=== PATIENT | female | born 1950 | race Caucasian/White ===

== ENCOUNTER 2017-02-22 13:08 | Inpatient (IN) | payer OTHER ==
[~2017-02-22] VITALS: Ht 152.4 cm; Wt 69.6 kg
[2017-02-22 13:11] VITALS: BP 133/76; PULSE 96; RESP 20; TEMP 97.5; O2SAT 99
[2017-02-22] MEDS ORDERED: SODIUM CHLOR 0.9% 1000 ML INJ 1,000 ML IV SCH (13:35)
--- NOTE | 2017-02-22 13:43 | PD ---
HPI Chief Complaint: Abdominal Pain Time Seen by Provider: 13:41 Travel History International Travel<30 days: No Contact w/Intl Traveler<30days: No Traveled to known affect area: No History of Present Illness HPI 66-year-old female patient presents to the ER today for 5 days history of right lower quadrant abdominal pains which she states is a for respite gets much worse when she moves. She had been seen at urgent care 4 days ago and was seen by primary care 2 days ago for similar symptoms and had been told to come to the ER if symptoms do not go away. She states she has been nauseous but denies any vomiting, diarrhea, fevers, or any other symptoms. Modifying Factors: None Associated Signs & Symptoms: Right lower quadrant abdominal pain Risk Factors: None PFSH Past Medical History Chemotherapy: Yes (2003) Past Surgical History Hysterectomy: Yes Social History Tobacco Use: No Allergies-Medications (Allergen,Severity, Reaction): Coded Allergies: Aldactone (Verified Allergy, Intermediate, FLU-LIKE SXS, 09/07/03) Bactrim (Verified Allergy, Intermediate, Dizziness, 02/22/17) Hydrochlorothiazide (Verified Allergy, Intermediate, Dizziness, 02/22/17) Uncoded Allergies: SEASONAL ALLERGIES (Allergy, Unknown, 09/07/03) Reported Meds & Prescriptions Reported Meds & Active Scripts Active Reported Vitamin D (Cholecalciferol) 1,000 Unit Tab 1,000 Units PO DAILY Ventolin Hfa 18 GM Inh (Albuterol Sulfate) 90 Mcg/Act Aer 2 Puff INH Q4-6H PRN Gnp Acid Control 150 Maxi (Ranitidine HCl) 150 Mg Tab Polyethylene Glycol 3350 Powder (Polyethylene Glycol) 17 Gm Pow 17 Gm PO DAILY Omeprazole 20 Mg Tab 20 Mg PO DAILY Montelukast Sodium (Montelukast Sodium (Bulk)) 1 Pow Pow Metronidazole 500 Mg Tab 500 Mg PO TID Levofloxacin 500 Mg Tablet 500 Mg PO DAILY Fluticasone Nasal [place] 50 Mcg/Act Naspr 50 Mcg EACH NARE BID 50 mcg/spray Estrace Vaginal (Estradiol) 0.01% Cream 1 Appl VAGINAL HS Bupropion HCl ER 24 HR (Bupropion HCl) 150 Mg Tab 150 Mg PO DAILY Atorvastatin (Atorvastatin Calcium) 10 Mg Tab 10 Mg PO HS Aspirin 81 Mg Chew 81 Mg CHEW DAILY Synthroid (Levothyroxine Sodium) 112 Mcg Tab 112 Mcg PO DAILY Review of Systems Except as stated in HPI: all other systems reviewed are Neg Physical Exam Narrative GENERAL: Elderly white female patient currently in moderate distress. Awake and oriented 3. SKIN: Focused skin assessment warm/dry. HEAD: Atraumatic. Normocephalic. EYES: Pupils equal and round. No scleral icterus. No injection or drainage. ENT: No nasal bleeding or discharge. Mucous membranes pink and moist. NECK: Trachea midline. No JVD. CARDIOVASCULAR: Regular rate and rhythm. No murmur appreciated. RESPIRATORY: No accessory muscle use. Clear to auscultation. Breath sounds equal bilaterally. GASTROINTESTINAL: Abdomen soft, right lower quadrant tenderness without guarding or rebound, nondistended. Hepatic and splenic margins not palpable. MUSCULOSKELETAL: No obvious deformities. No clubbing. No cyanosis. No edema. NEUROLOGICAL: Awake and alert. No obvious cranial nerve deficits. Motor grossly within normal limits. Normal speech. PSYCHIATRIC: Appropriate mood and affect; insight and judgment normal. Data Data Last Documented VS Vital Signs Date Time Temp Pulse Resp B/P Pulse Ox O2 Delivery O2 Flow Rate FiO2 02/22/17 14:15 14 02/22/17 14:05 70 125/66 99 Room Air 02/22/17 13:11 97.5 Orders Complete Blood Count With Diff (02/22/17 13:35) Comprehensive Metabolic Panel (02/22/17 13:35) Lipase (02/22/17 13:35) Urinalysis - C+S If Indicated (02/22/17 13:35) Ct Abd/Pel W Iv Contrast(Rout) (02/22/17 13:35) Iv Access Insert/Monitor (02/22/17 13:35) Ecg Monitoring (02/22/17 13:35) Oximetry (02/22/17 13:35) Morphine Inj (Morphine Inj) (02/22/17 13:45) Ondansetron Inj (Zofran Inj) (02/22/17 13:45) Sodium Chlor 0.9% 1000 Ml Inj (Ns 1000 M (02/22/17 13:35) Sodium Chloride 0.9% Flush (Ns Flush) (02/22/17 13:45) Iohexol 350 Inj (Omnipaque 350 Inj) (02/22/17 15:45) Labs Laboratory Tests Test 02/22/17 13:45 White Blood Count 9.4 TH/MM3 Red Blood Count 4.46 MIL/MM3 Hemoglobin 12.6 GM/DL Hematocrit 39.6 % Mean Corpuscular Volume 88.8 FL Mean Corpuscular Hemoglobin 28.4 PG Mean Corpuscular Hemoglobin 31.9 % Concent Red Cell Distribution Width 13.2 % Platelet Count 319 TH/MM3 Mean Platelet Volume 7.7 FL Neutrophils (%) (Auto) 54.1 % Lymphocytes (%) (Auto) 35.5 % Monocytes (%) (Auto) 6.6 % Eosinophils (%) (Auto) 2.8 % Basophils (%) (Auto) 1.0 % Neutrophils # (Auto) 5.1 TH/MM3 Lymphocytes # (Auto) 3.3 TH/MM3 Monocytes # (Auto) 0.6 TH/MM3 Eosinophils # (Auto) 0.3 TH/MM3 Basophils # (Auto) 0.1 TH/MM3 CBC Comment DIFF FINAL Differential Comment Urine Color YELLOW Urine Turbidity CLEAR Urine pH 5.5 Urine Specific [place] 1.019 Urine Protein NEG mg/dL Urine Glucose (UA) NEG mg/dL Urine Ketones NEG mg/dL Urine Occult Blood NEG Urine Nitrite NEG Urine Bilirubin NEG Urine Urobilinogen LESS THAN 2.0 MG/DL Urine Leukocyte Esterase TRACE Urine RBC 1 /hpf Urine WBC 1 /hpf Urine Squamous Epithelial 2 /hpf Cells Urine Transitional Epithelial <1 /hpf Cells Urine Mucus FEW /lpf Microscopic Urinalysis Comment CULT NOT INDICATED Sodium Level 138 MEQ/L Potassium Level 3.7 MEQ/L Chloride Level 103 MEQ/L Carbon Dioxide Level 28.7 MEQ/L Anion Gap 6 MEQ/L Blood Urea Nitrogen 14 MG/DL Creatinine 0.77 MG/DL Estimat Glomerular Filtration 75 ML/MIN Rate Random Glucose 108 MG/DL Calcium Level 9.2 MG/DL Total Bilirubin 0.2 MG/DL Aspartate Amino Transf 30 U/L (AST/SGOT) Alanine Aminotransferase 46 U/L (ALT/SGPT) Alkaline Phosphatase 105 U/L Total Protein 7.7 GM/DL Albumin 4.0 GM/DL Lipase 245 U/L [facility] Medical Decision Making Medical Screen Exam Complete: Yes Emergency Medical Condition: Yes Medical Record Reviewed: Yes Interpretation(s) Laboratory Tests Test 02/22/17 13:45 Mean Corpuscular Hemoglobin 31.9 % Concent (32.0-36.0) Urine Leukocyte Esterase TRACE (NEG) Urine Mucus FEW /lpf (OCC) Estimat Glomerular Filtration 75 ML/MIN (>89) Rate Random Glucose 108 MG/DL (74-106) Differential Diagnosis Right lower quadrant abdominal painsappendicitis versus diverticulitis versus other acute intra-abdominal processes Narrative Course Lab work did not show any signs of significant leukocytosis. CAT scan reveals normal appendix but shows a abnormal appearing mass at the hip the pancreas concerning for pancreatic adenocarcinoma. At this point, my plan would be to admit the patient for further treatment and evaluation of abdominal pain. Case was discussed with Dr. Krueger for admission. Diagnosis Primary Impression: Abdominal pain Additional Impression: Pancreatic mass Admitting Information Admitting Physician Requests: Admit Janelle Salazar MD Feb 22, 2017 13:43
[2017-02-22] MEDS ORDERED: SODIUM CHLORIDE 0.9% FLUSH 10 ML FLUSH IV FLUSH PRN (13:45)
[2017-02-22] MEDS ORDERED: ONDANSETRON HCL 4 MG/2 ML VIAL IVP ONE (13:45)
[2017-02-22] MEDS ORDERED: MORPHINE SULFATE 4 MG/ML INJ IV PUSH ONE (13:45)
[2017-02-22 14:05] VITALS: BP 125/66; PULSE 70; RESP 15; O2SAT 99
[2017-02-22] MEDS ORDERED: POLY17S PO (14:05)
[2017-02-22] MEDS ORDERED: ATOR10TA15 PO (14:05)
[2017-02-22] MEDS ORDERED: VENTAER INH (14:05)
[2017-02-22] MEDS ORDERED: BUPR150T3 PO (14:05)
[2017-02-22] MEDS ORDERED: GNP150TA (14:05)
[2017-02-22] MEDS ORDERED: METR500T10 PO (14:05)
[2017-02-22] MEDS ORDERED: MONTPOW2 (14:05)
[2017-02-22] MEDS ORDERED: SYNT112T PO (14:05)
[2017-02-22] MEDS ORDERED: FLUT50SP EACH NARE (14:05)
[2017-02-22] MEDS ORDERED: ASPI81CH CHEW (14:05)
[2017-02-22] MEDS ORDERED: VITA100064 PO (14:05)
[2017-02-22] MEDS ORDERED: OMEP20TA PO (14:05)
[2017-02-22] MEDS ORDERED: LEVO500T8 PO (14:05)
[2017-02-22] MEDS ORDERED: ESTR42.5V VAGINAL (14:05)
[2017-02-22 14:29] LABS: AUTOMATED NEUTROPHIL # 5.1 TH/MM3 (1.8-7.7); BASOPHIL # 0.1 TH/MM3 (0-0.2); EOSINOPHIL # 0.3 TH/MM3 (0-0.4); EOSINOPHIL % 2.8 % (0.0-4.0); HEMATOCRIT 39.6 % (35.0-46.0); HEMO FLAGS DIFF FINAL; LYMPH % 35.5 % (9.0-44.0); LYMPHOCYTE # 3.3 TH/MM3 (1.0-4.8); MEAN CELL VOLUME 88.8 FL (80.0-100.0); MEAN CORPUSCULAR HEMOGLOBIN 28.4 PG (27.0-34.0); MEAN CORPUSCULAR HGB CONC 31.9 % (32.0-36.0); MONO % 6.6 % (0.0-8.0); NEUT % 54.1 % (16.0-70.0); PLATELET COUNT 319 TH/MM3 (150-450); RED BLOOD COUNT 4.46 MIL/MM3 (4.00-5.30); RED CELL DISTRIBUTION WIDTH 13.2 % (11.6-17.2); WHITE BLOOD COUNT 9.4 TH/MM3 (4.0-11.0)
[2017-02-22 14:37] LABS: BLOOD, URINE NEG (NEG); COMMENT (UR) CULT NOT INDICATED; CULTURE IF INDICATED CULT NOT INDICATED; GLUCOSE,URINE NEG (NEG); KETONE, URINE NEG (NEG); MUCUS URINE FEW /lpf (OCC); NITRITE,URINE NEG (NEG); PH, URINE 5.5 (5.0-8.5); SQUAMOUS EPITHELIAL CELL URINE 2 /hpf (0-5); TRANSITIONAL EPI CELLS, URINE <1 /hpf; URINE COLOR YELLOW (YELLW/STRAW)
[2017-02-22 15:05] LABS: ANION GAP 6 MEQ/L (5-15); AST (GOT) 30 U/L (15-37); BICARBONATE 28.7 MEQ/L (21.0-32.0); BLOOD UREA NITROGEN 14 MG/DL (7-18); CHLORIDE 103 MEQ/L (98-107); GLOMERULAR FILTRATION RATE 75 ML/MIN (>89); POTASSIUM 3.7 MEQ/L (3.5-5.1); SODIUM (NA) 138 MEQ/L (136-145)
[2017-02-22 15:07] LABS: ALKALINE PHOSPHATASE 105 U/L (45-117); ALT (GPT) 46 U/L (10-53); TOTAL BILIRUBIN ADULT 0.2 MG/DL (0.2-1.0)
[2017-02-22] MEDS ORDERED: IOHEXOL 350 MG/ML 10 ML VIAL (for RAD DIAG) IV ONE (15:45)
--- NOTE | 2017-02-22 16:15 | RADRPT ---
EXAM DATE/TIME: 02/22/2017 15:39 [facility] COMPARISON: No previous studies available for comparison. INDICATIONS : Right lower quadrant pain for five days. IV CONTRAST: 100 cc Omnipaque 350 (iohexol) IV ORAL CONTRAST: No oral contrast ingested. RADIATION DOSE: 12.34 CTDIvol (mGy) MEDICAL HISTORY : Carcinoma, breast. SURGICAL HISTORY : Cholecystectomy. Hysterectomy. ENCOUNTER: Initial ACUITY: 1 day PAIN SCALE: 8/10 LOCATION: Right lower quadrant TECHNIQUE: Volumetric scanning of the abdomen and pelvis was performed. Using automated exposure control and ad justment of the mA and/or kV according to patient size, radiation dose was kept as low as reasonably achievable to obtain optimal diagnostic quality images. FINDINGS: LOWER LUNGS: The visualized lower lungs are clear. LIVER: Homogeneous density without lesion. There is no dilation of the biliary tree. Gallbladder is surgica lly absent. SPLEEN: Normal size without lesion. PANCREAS: There is ill defined hypodensity involving the pancreatic head with pancreatic ductal dilatation dist ally. There is questionable pancreatic tail atrophy. No significant pancreatic calcifications or infl ammatory change. No adjacent adenopathy. KIDNEYS: Normal in size and shape. There is no mass, stone or hydronephrosis. ADRENAL GLANDS: Within normal limits. VASCULAR: There is no aortic aneurysm. BOWEL/MESENTERY: Appendix is visualized and normal in appearance. Bowel appears grossly unremarkable without evidence for obstruction. No free fluid or drainable fluid collection. ABDOMINAL WALL: Within normal limits. RETROPERITONEUM: There is no lymphadenopathy. BLADDER: No wall thickening or mass. REPRODUCTIVE: Uterus is surgically absent. INGUINAL: There is no lymphadenopathy or hernia. MUSCULOSKELETAL: Within normal limits for patient age. CONCLUSION: 1. Ill-defined mass in the pancreatic head/proximal body with resultant pancreatic ductal dilatation and slight tail atrophy. Findings are concerning for pancreatic adenocarcinoma. Pancreatic mass amber col MRI or CT examination may be performed for further evaluation. 2. Normal appendix. 3. No other findings to explain patient's abdominal pain. Venu Mendenhall MD on February 22, 2017 at 16:04 Board Certified Radiologist. This report was verified electronically.
--- NOTE | 2017-02-22 17:08 | HHI.HP ---
HPI Service [facility] Hospitalists Primary Care Physician Melissa Rascon Jr, MD Admission Diagnosis abdominal pain/pancreatic mass Chief Complaint: rlq pain Travel History International Travel<30 Days: No Contact w/Intl Traveler <30 Da: No Traveled to Known Affected Are: No History of Present Illness Pt is 66 yo with hx of breast ca s/p lumpectomy, chemoradiation. She presents with rlq pain over past week. Was seen in urgent care and pcp. she was prescribed levaquin and flagyl for possible appendicitis but it was unclear. Also she was given laxatives for possible constipation. No f/c or n/v. Pt seen here today and CT a/p shows apparent pancreas mass with distention of pancreatic duct. admission requested. Pt has maternal grandfather had pancreas ca and paternal grandmother with breast ca. Her father had colon ca at 57. She gets regular colonoscopy and says had one about 4 yrs ago. Review of Systems Other rlq pain Past Family Social History Past Medical History breast ca. lumpectomy. s/p chemorad. port placement cholecystecomy betty/bso hypothyroidism seasonal allergy. depression,. hyperlipidemia Past Surgical History Reported Medications Vitamin D (Cholecalciferol) 1,000 Unit Tab 1,000 Units PO DAILY Ventolin Hfa 18 GM Inh (Albuterol Sulfate) 90 Mcg/Act Aer 2 Puff INH Q4-6H PRN Gnp Acid Control 150 Maxi (Ranitidine HCl) 150 Mg Tab Polyethylene Glycol 3350 Powder (Polyethylene Glycol) 17 Gm Pow 17 Gm PO DAILY Omeprazole 20 Mg Tab 20 Mg PO DAILY Montelukast Sodium (Montelukast Sodium (Bulk)) 1 Pow Pow Metronidazole 500 Mg Tab 500 Mg PO TID Levofloxacin 500 Mg Tablet 500 Mg PO DAILY Fluticasone Nasal [place] 50 Mcg/Act Naspr 50 Mcg EACH NARE BID 50 mcg/spray Estrace Vaginal (Estradiol) 0.01% Cream 1 Appl VAGINAL HS Bupropion HCl ER 24 HR (Bupropion HCl) 150 Mg Tab 150 Mg PO DAILY Atorvastatin (Atorvastatin Calcium) 10 Mg Tab 10 Mg PO HS Aspirin 81 Mg Chew 81 Mg CHEW DAILY Synthroid (Levothyroxine Sodium) 112 Mcg Tab 112 Mcg PO DAILY Allergies: Coded Allergies: Aldactone (Verified Allergy, Intermediate, FLU-LIKE SXS, 09/07/03) Bactrim (Verified Allergy, Intermediate, Dizziness, 02/22/17) Hydrochlorothiazide (Verified Allergy, Intermediate, Dizziness, 02/22/17) Uncoded Allergies: SEASONAL ALLERGIES (Allergy, Unknown, 09/07/03) Family History father colon ca 57 pat GM. breast ca pat GF pancreas ca Social History at least 1 glass wine daily quit tob use over 30yrs ago Physical Exam Vital Signs heent neg heart reg lung cta abd s/nt/nabs/nd just received morphine ext no edema Vital Signs Date Time Temp Pulse Resp B/P Pulse Ox O2 Delivery O2 Flow Rate FiO2 02/22/17 14:15 14 02/22/17 14:05 70 15 125/66 99 Room Air 02/22/17 13:35 15 02/22/17 13:11 97.5 96 20 133/76 99 Room Air Laboratory Laboratory Tests Test 02/22/17 13:45 White Blood Count 9.4 Red Blood Count 4.46 Hemoglobin 12.6 Hematocrit 39.6 Mean Corpuscular Volume 88.8 Mean Corpuscular Hemoglobin 28.4 Mean Corpuscular Hemoglobin 31.9 Concent Red Cell Distribution Width 13.2 Platelet Count 319 Mean Platelet Volume 7.7 Neutrophils (%) (Auto) 54.1 Lymphocytes (%) (Auto) 35.5 Monocytes (%) (Auto) 6.6 Eosinophils (%) (Auto) 2.8 Basophils (%) (Auto) 1.0 Neutrophils # (Auto) 5.1 Lymphocytes # (Auto) 3.3 Monocytes # (Auto) 0.6 Eosinophils # (Auto) 0.3 Basophils # (Auto) 0.1 CBC Comment DIFF FINAL Differential Comment Urine Color YELLOW Urine Turbidity CLEAR Urine pH 5.5 Urine Specific [place] 1.019 Urine Protein NEG Urine Glucose (UA) NEG Urine Ketones NEG Urine Occult Blood NEG Urine Nitrite NEG Urine Bilirubin NEG Urine Urobilinogen LESS THAN 2.0 Urine Leukocyte Esterase TRACE Urine RBC 1 Urine WBC 1 Urine Squamous Epithelial 2 Cells Urine Transitional Epithelial <1 Cells Urine Mucus FEW Microscopic Urinalysis Comment CULT NOT INDICATED Sodium Level 138 Potassium Level 3.7 Chloride Level 103 Carbon Dioxide Level 28.7 Anion Gap 6 Blood Urea Nitrogen 14 Creatinine 0.77 Estimat Glomerular Filtration 75 Rate Random Glucose 108 Calcium Level 9.2 Total Bilirubin 0.2 Aspartate Amino Transf 30 (AST/SGOT) Alanine Aminotransferase 46 (ALT/SGPT) Alkaline Phosphatase 105 Total Protein 7.7 Albumin 4.0 Lipase 245 Result Diagram: 02/22/17 1345 02/22/17 1345 Assessment and Plan Problem List: (1) Pancreatic mass Status: Acute Plan: Pt has hx breast ca s/p lumpectomy/chemorad. Presents with 1 week RLQ pain and abx started by clinic for questionable appendicitis. laxative for constipation. But today in ED CT shows an apparent pancreas head mass and dilation of pancreatic duct. Denies any known hx of pancreatitis but does use daily wine. certainly we need to exclude malignancy. She has as above a strong family hx of malignancy. Father(colon), paternal GM(breast), paternal GF(pancreas) MRCP to evaluate anatomy GI consult if still concerning for malignancy check tumor markers pain control cont laxatives dvt prophylaxis. (2) HX: breast cancer Status: Resolved (3) Hypothyroid Status: Chronic Physician Certification 2 Midnight Certification Type: Admission for Inpatient Services Order for Inpatient Services 3The services are ordered in accordance with Medicare regulations or non- Medicare payer requirements, as applicable. In the case of services not specified as inpatient-only, they are appropriately provided as inpatient services in accordance with the 2-midnight benchmark. Estimated LOS (days): 3 3 days is the estimated time the patient will need to remain in the hospital, assuming treatment plan goals are met and no additional complications. Álvaro Krueger MD Feb 22, 2017 17:08
[2017-02-22] MEDS ORDERED: ALBUTEROL SULFATE 90 MCG/ACT HFA 18 GM INHALER INH PRN (17:15)
[2017-02-22] MEDS ORDERED: TEMAZEPAM 15 MG CAP PO PRN (17:15)
[2017-02-22] MEDS ORDERED: ONDANSETRON HCL 4 MG/2 ML VIAL IV PUSH PRN (17:15)
[2017-02-22] MEDS ORDERED: GADODIAMIDE PF 287 MG/ML 20 ML VIAL (for RAD MRI) IV ONE (18:37)
--- NOTE | 2017-02-22 19:09 | RADRPT ---
EXAM DATE/TIME: 02/22/2017 18:14 [facility] COMPARISON: CT ABDOMEN & PELVIS W CONTRAST, February 22, 2017, 15:39. INDICATIONS : Pancreatic mass. CONTRAST: 14 cc Omniscan (gadodiamide) IV MEDICAL HISTORY : Carcinoma, breast. SURGICAL HISTORY : Cholecystectomy. Breast lumpectomy. ENCOUNTER: Initial ACUITY: 1 day PAIN SCORE: 5/10 LOCATION: Right lower quadrant TECHNIQUE: Multiplanar, multisequence magnetic resonance imaging of the abdomen was performed. High-resolution 3D dataset was utilized to reconstruct maximum-intensity projection (MIP) images. FINDINGS: Vague hypoenhancing mass seen in the pancreatic head, measures approximately 2.0 x 2.2 x 2.8 cm in si ze. Common bile duct is distended and deviated to the right, measures approximately 11 mm maximum. Th ere is patchy dilatation of the pancreatic duct up to 7 mm and truncated abruptly within the mass. Mi ld/early tail atrophy suspected. No lymphadenopathy demonstrated. No evidence of vascular invasion. No focal hepatic lesion. Spleen, adrenal glands and kidneys are within normal limits. CONCLUSION: Mass of the pancreatic head measuring approximately 2.0 x 2.2 x 2.8 cm, adenocarcinoma until proven o therwise. Associated obstruction of the pancreatic duct and deviation/dilatation of the common bile d uct. No evidence of metastatic disease or focal vascular invasion. Ashish Varma MD on February 22, 2017 at 19:01 Board Certified Radiologist. This report was verified electronically.
[2017-02-22 19:11] VITALS: BP 126/59
[2017-02-22 20:00] VITALS: BP 108/55; PULSE 110; RESP 17; TEMP 97.5; O2SAT 95
[2017-02-22] MEDS: FLUTICASONE PROPIONATE 50 MCG/ACT 16 GM NASAL SPRAY EACH NARE SCH (21:00)
[2017-02-22] MEDS: MORPHINE SULFATE 4 MG/ML INJ IV PUSH PRN (21:52)
[2017-02-23] VITALS: BP 116/55; PULSE 74; RESP 16; TEMP 97.7; O2SAT 95
[2017-02-23 04:00] VITALS: BP 107/55; PULSE 78; RESP 16; TEMP 97.4; O2SAT 98
[2017-02-23] MEDS: LEVOTHYROXINE SODIUM 112 MCG TAB PO SCH (04:53)
[2017-02-23] MEDS: PANTOPRAZOLE SOD 20 MG DELAYED RELEASE TAB PO SCH (04:57)
[2017-02-23 08:00] VITALS: BP 117/76; PULSE 73; RESP 18; TEMP 96.6; O2SAT 98
[2017-02-23] MEDS: FLUTICASONE PROPIONATE 50 MCG/ACT 16 GM NASAL SPRAY EACH NARE SCH ×2 (09:00→21:29)
[2017-02-23] MEDS: buPROPion HCL 150 MG EXTENDED RELEASE TAB PO SCH (09:00)
[2017-02-23] MEDS ORDERED: ACETAMINOPHEN 325 MG TAB PO ONE (09:45)
[2017-02-23] MEDS ORDERED: ACETAMINOPHEN 325 MG TAB PO PRN (09:45)
[2017-02-23] MEDS: CHOLECALCIFEROL (VIT D3) 1000 UNIT TAB PO SCH (09:52)
[2017-02-23] MEDS: POLYETHYLENE GLYCOL 17 GM PKG PO SCH (09:52)
[2017-02-23 12:00] VITALS: BP 120/65; PULSE 80; RESP 18; TEMP 97.5; O2SAT 96
--- NOTE | 2017-02-23 12:20 | HHI.PR ---
Subjective Remarks rlq pain somewhat better. bowels moving. Objective Vitals heart reg lung cta abd s/nt ext no edema Vital Signs Date Time Temp Pulse Resp B/P Pulse Ox O2 Delivery O2 Flow Rate FiO2 02/23/17 08:00 96.6 73 18 117/76 98 02/23/17 04:00 97.4 78 16 107/55 98 02/23/17 00:00 97.7 74 16 116/55 95 02/22/17 22:44 16 02/22/17 20:00 97.5 110 17 108/55 95 02/22/17 19:11 104 15 126/59 97 02/22/17 14:15 14 02/22/17 14:05 70 15 125/66 99 Room Air 02/22/17 13:35 15 02/22/17 13:11 97.5 96 20 133/76 99 Room Air 02/22/17 02/22/17 02/23/17 15:00 23:00 07:00 Intake Total 480 ml 480 ml Balance 480 ml 480 ml Intake Oral 480 ml 480 ml # Voids 3 4 Result Diagram: 02/22/17 1345 02/22/17 1345 A/P Problem List: (1) Pancreatic mass Status: Acute Plan: Pt has hx breast ca s/p lumpectomy/chemorad. Presents with 1 week RLQ pain and abx started by clinic for questionable appendicitis. laxative for constipation. But in ED CT shows an apparent pancreas head mass and dilation of pancreatic duct. Denies any known hx of pancreatitis but does use daily wine. certainly we need to exclude malignancy. She has as above a strong family hx of malignancy. Father(colon), paternal GM(breast), paternal GF(pancreas) -MRCP 02/22. 2 x 2.2 x 2.8cm pancreatic head mass. some dilation of pancreatic duct and distortion of cbd. concern for adenoca Long discussion with pt. Will need to ask GI for evaluation and will likely need EUS w/up. So far no obstruction on LFT. ..?c-scope given rlq pain Tumor markers note nml cea and ca 19-9 pain control cont laxatives dvt prophylaxis. (2) HX: breast cancer Status: Resolved (3) Hypothyroid Status: Chronic Álvaro Krueger MD Feb 23, 2017 12:20
--- NOTE | 2017-02-23 13:47 | PD.CONS ---
HPI History of Present Illness This is a 66 year old lady with hx breast ca s/p lumpectomy with chemo and radiation, family hx pancreatic and colon ca, who presented to hospital with RLQ pain and was found to have pancreatic head mass. She has had RLQ pain intermittently in the last couple years but has worsened in last 2 weeks. It seems like a stabbing pain she notices most when changing positions, sitting down or standing up. It hurts when she chagnes position in bed and settles down when she is comfortable and not moving. She was constipated and took dulcolax and had some relief after subsequent BM but then pain got worse and she came to ER. CT --> pancreatic mass w/ distention pancreatic duct. MRCP -- > mass pancreatic head 2x2.2x2.8 cm, adenocarcinoma until proven otherwise, associated obstruction pancreatic duct and deviation, dilatation common bile duct, no evidence metastatic disease or focal vascular invasion. pt denies jaundice, n/v, diarrhea, weight loss. She last had colonoscopy 4 years ago, she thinks w/ Dr Velez, and it was normal. She had EGD a couple years ago for dysphagia and had dilation done, stricture was found. Her GERD subsequently worsened after dilation. She takes omeprazole. She says when she had her MICHAEL she was told there were adhesions. (Perlita Haddad) PFSH Past Medical History breast cancer GERD hyperlipdemia depression hypothyroid Past Surgical History cholecystectomy, right lumpectomy, MICHAEL (Perlita Haddad) Coded Allergies: Aldactone (Verified Allergy, Intermediate, FLU-LIKE SXS, 09/07/03) Bactrim (Verified Allergy, Intermediate, Dizziness, 02/22/17) Hydrochlorothiazide (Verified Allergy, Intermediate, Dizziness, 02/22/17) Uncoded Allergies: SEASONAL ALLERGIES (Allergy, Unknown, 09/07/03) Family History breast cancer - grand parent pancreatic cancer - grandparent colon ca - father aortic stenosis - mother CVD Social History occasional etoh no tobacco or drug use (Perlita Haddad) Review of Systems Constitutional: DENIES: Fever Eyes: DENIES: Blurred vision Ears, nose, mouth, throat: DENIES: Hearing loss Respiratory: DENIES: Cough Gastrointestinal: COMPLAINS OF: Abdominal pain, DENIES: Black stools, Bloody stools, Constipation, Diarrhea, Nausea, Anorexia, Swelling of Abdomen, Hematemesis Genitourinary: DENIES: Urinary frequency Integumentary: DENIES: Abnormal pigmentation, Jaundice Hematologic/lymphatic: DENIES: Bruising Neurologic: DENIES: Abnormal gait Psychiatric: DENIES: Confusion (Perlita Haddad) GI Exam Vitals I&O Vital Signs Date Time Temp Pulse Resp B/P Pulse Ox O2 Delivery O2 Flow Rate FiO2 02/23/17 12:00 97.5 80 18 120/65 96 02/23/17 08:00 96.6 73 18 117/76 98 02/23/17 04:00 97.4 78 16 107/55 98 02/23/17 00:00 97.7 74 16 116/55 95 02/22/17 22:44 16 02/22/17 20:00 97.5 110 17 108/55 95 02/22/17 19:11 104 15 126/59 97 02/22/17 14:15 14 02/22/17 14:05 70 15 125/66 99 Room Air I/O 02/22/17 02/22/17 02/22/17 02/23/17 02/23/17 02/23/17 07:00 15:00 23:00 07:00 15:00 23:00 Intake Total 480 ml 480 ml Balance 480 ml 480 ml Intake Oral 480 ml 480 ml # Voids 3 4 Imaging Last Impressions Abdomen/Pelvis CT 02/22/17 1335 Signed Impressions: Service Date/Time: Wednesday, February 22, 2017 15:39 - CONCLUSION: 1. Ill- defined mass in the pancreatic head/proximal body with resultant pancreatic ductal dilatation and slight tail atrophy. Findings are concerning for pancreatic adenocarcinoma. Pancreatic mass protocol MRI or CT examination may be performed for further evaluation. 2. Normal appendix. 3. No other findings to explain patient's abdominal pain. Venu Mendenhall MD Cholangiopancreatography MRI 02/22/17 0000 Signed Impressions: Service Date/Time: Wednesday, February 22, 2017 18:14 - CONCLUSION: Mass of the pancreatic head measuring approximately 2.0 x 2.2 x 2.8 cm, adenocarcinoma until proven otherwise. Associated obstruction of the pancreatic duct and deviation/dilatation of the common bile duct. No evidence of metastatic disease or focal vascular invasion. Ashish Varma MD Laboratory Test 02/22/17 02/22/17 13:45 18:45 White Blood Count 9.4 TH/MM3 Red Blood Count 4.46 MIL/MM3 Hemoglobin 12.6 GM/DL Hematocrit 39.6 % Mean Corpuscular Volume 88.8 FL Mean Corpuscular Hemoglobin 28.4 PG Mean Corpuscular Hemoglobin 31.9 % Concent Red Cell Distribution Width 13.2 % Platelet Count 319 TH/MM3 Mean Platelet Volume 7.7 FL Neutrophils (%) (Auto) 54.1 % Lymphocytes (%) (Auto) 35.5 % Monocytes (%) (Auto) 6.6 % Eosinophils (%) (Auto) 2.8 % Basophils (%) (Auto) 1.0 % Neutrophils # (Auto) 5.1 TH/MM3 Lymphocytes # (Auto) 3.3 TH/MM3 Monocytes # (Auto) 0.6 TH/MM3 Eosinophils # (Auto) 0.3 TH/MM3 Basophils # (Auto) 0.1 TH/MM3 CBC Comment DIFF FINAL Differential Comment Urine Color YELLOW Urine Turbidity CLEAR Urine pH 5.5 Urine Specific Baker 1.019 Urine Protein NEG mg/dL Urine Glucose (UA) NEG mg/dL Urine Ketones NEG mg/dL Urine Occult Blood NEG Urine Nitrite NEG Urine Bilirubin NEG Urine Urobilinogen LESS THAN 2.0 MG/DL Urine Leukocyte Esterase TRACE Urine RBC 1 /hpf Urine WBC 1 /hpf Urine Squamous Epithelial 2 /hpf Cells Urine Transitional Epithelial <1 /hpf Cells Urine Mucus FEW /lpf Microscopic Urinalysis Comment CULT NOT INDICATED Sodium Level 138 MEQ/L Potassium Level 3.7 MEQ/L Chloride Level 103 MEQ/L Carbon Dioxide Level 28.7 MEQ/L Anion Gap 6 MEQ/L Blood Urea Nitrogen 14 MG/DL Creatinine 0.77 MG/DL Estimat Glomerular Filtration 75 ML/MIN Rate Random Glucose 108 MG/DL Calcium Level 9.2 MG/DL Total Bilirubin 0.2 MG/DL Aspartate Amino Transf 30 U/L (AST/SGOT) Alanine Aminotransferase 46 U/L (ALT/SGPT) Alkaline Phosphatase 105 U/L Total Protein 7.7 GM/DL Albumin 4.0 GM/DL Lipase 245 U/L Tumor Marker Alpha Fetoprotein 8.7 NG/ML Carcinoembryonic Antigen 1.1 NG/ML CA 19-9 Antigen LESS THAN 1.2 U/ML Physical Examination HEENT: Pupils round and reactive to light; normocephalic; atraumatic; no jaundice. Throat is clear. NECK: Neck is supple, no JVD, no lymphadenopathy. CHEST: Chest is clear to auscultation and percussion. CARDIAC: Regular rate and rhythm with no murmur gallop or rubs. ABDOMEN: Soft, nondistended, nontender; no hepatosplenomegaly; bowel sounds are present in all four quadrants. EXTREMITIES: No clubbing, cyanosis, or edema. SKIN: Normal; no rash; no jaundice. 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 (Perlita Haddad) Assessment and Plan Plan ASSESSMENT -pancreatic mass - no LFT derangement, pt denies n/v, epigastric pain, jaundice. AFP 8.7, CEA 1.1, CA 19-[address] --> 02/22/17 pancreatic mass w/ distention pancreatic duct. MRCP 02/22/17--> mass pancreatic head 2x2.2x2.8 cm, adenocarcinoma until proven otherwise, associated obstruction pancreatic duct and deviation, dilatation common bile duct, no evidence metastatic disease or focal vascular invasion. fam hx pancreatic ca. - RLQ pain - ?adhesions hx MICHAEL, told at that time she had adhesions. worse with certain movements. CT as above. Colonoscopy 4y ago and normal per pt. Consider repeat colonoscopy. If pain persists or worsens consider GS consult. fam hx colon ca. Pain improved today. PLAN - EUS tomorrow - obtain consents - NPO after midnight - monitor labs - further recommendations to follow This pt seen by myself and DR Odom and this note is written on his behalf (Perlita Haddad) Physician Comments Patient seen and examined Agree with above Continue with current supportive care Monitor labs Plan for EUS with FNA probably tomorrow but if not he will be Friday May need to pursue a colonoscopy also (Maurice Odom MD) Perlita Haddad Feb 23, 2017 13:47 Maurice Odom MD Feb 23, 2017 15:16
[2017-02-23] MEDS: MORPHINE SULFATE 4 MG/ML INJ IV PUSH PRN (15:20)
[2017-02-23] MEDS ORDERED: ACETAMINOPHEN/HYDROcodone 325 MG/5 MG TAB PO PRN (15:45)
[2017-02-23 16:00] VITALS: BP 108/66; PULSE 69; RESP 18; TEMP 97.6; O2SAT 98
[2017-02-23 20:00] VITALS: BP 112/58; PULSE 84; RESP 17; TEMP 97.1; O2SAT 95
[2017-02-24] VITALS: BP 107/55; PULSE 75; RESP 16; TEMP 97.4; O2SAT 97
[2017-02-24 04:00] VITALS: BP 109/57; PULSE 70; RESP 17; TEMP 97.1; O2SAT 97
[2017-02-24] MEDS: PANTOPRAZOLE SOD 20 MG DELAYED RELEASE TAB PO SCH (05:07)
[2017-02-24] MEDS: LEVOTHYROXINE SODIUM 112 MCG TAB PO SCH (05:08)
[2017-02-24 08:28] VITALS: BP 115/68; PULSE 75; RESP 20; TEMP 96.4; O2SAT 96
--- NOTE | 2017-02-24 08:34 | HHI.PR ---
Subjective Remarks Pt complains of a right sided frontal headache which has been present since yesterday She thinks it may be a sinus headache. Still with some abdominal discomfort which is slightly improved since prior to admission. Objective Vitals Vital Signs Date Time Temp Pulse Resp B/P Pulse Ox O2 Delivery O2 Flow Rate FiO2 02/24/17 04:00 97.1 70 17 109/57 97 02/24/17 00:00 97.4 75 16 107/55 97 02/23/17 20:00 97.1 84 17 112/58 95 02/23/17 16:00 97.6 69 18 108/66 98 02/23/17 12:00 97.5 80 18 120/65 96 02/23/17 02/23/17 02/24/17 15:00 23:00 07:00 Intake Total 480 ml Balance 480 ml Intake Oral 480 ml IV Total 0 ml # Voids 4 2 Result Diagram: 02/22/17 1345 02/22/17 1345 Other Results Laboratory Tests Test 02/22/17 02/22/17 13:45 18:45 White Blood Count 9.4 TH/MM3 Red Blood Count 4.46 MIL/MM3 Hemoglobin 12.6 GM/DL Hematocrit 39.6 % Mean Corpuscular Volume 88.8 FL Mean Corpuscular Hemoglobin 28.4 PG Mean Corpuscular Hemoglobin 31.9 % Concent Red Cell Distribution Width 13.2 % Platelet Count 319 TH/MM3 Mean Platelet Volume 7.7 FL Neutrophils (%) (Auto) 54.1 % Lymphocytes (%) (Auto) 35.5 % Monocytes (%) (Auto) 6.6 % Eosinophils (%) (Auto) 2.8 % Basophils (%) (Auto) 1.0 % Neutrophils # (Auto) 5.1 TH/MM3 Lymphocytes # (Auto) 3.3 TH/MM3 Monocytes # (Auto) 0.6 TH/MM3 Eosinophils # (Auto) 0.3 TH/MM3 Basophils # (Auto) 0.1 TH/MM3 CBC Comment DIFF FINAL Differential Comment Urine Color YELLOW Urine Turbidity CLEAR Urine pH 5.5 Urine Specific Warner 1.019 Urine Protein NEG mg/dL Urine Glucose (UA) NEG mg/dL Urine Ketones NEG mg/dL Urine Occult Blood NEG Urine Nitrite NEG Urine Bilirubin NEG Urine Urobilinogen LESS THAN 2.0 MG/DL Urine Leukocyte Esterase TRACE Urine RBC 1 /hpf Urine WBC 1 /hpf Urine Squamous Epithelial 2 /hpf Cells Urine Transitional Epithelial <1 /hpf Cells Urine Mucus FEW /lpf Microscopic Urinalysis Comment CULT NOT INDICATED Sodium Level 138 MEQ/L Potassium Level 3.7 MEQ/L Chloride Level 103 MEQ/L Carbon Dioxide Level 28.7 MEQ/L Anion Gap 6 MEQ/L Blood Urea Nitrogen 14 MG/DL Creatinine 0.77 MG/DL Estimat Glomerular Filtration 75 ML/MIN Rate Random Glucose 108 MG/DL Calcium Level 9.2 MG/DL Total Bilirubin 0.2 MG/DL Aspartate Amino Transf 30 U/L (AST/SGOT) Alanine Aminotransferase 46 U/L (ALT/SGPT) Alkaline Phosphatase 105 U/L Total Protein 7.7 GM/DL Albumin 4.0 GM/DL Lipase 245 U/L Tumor Marker Alpha Fetoprotein 8.7 NG/ML Carcinoembryonic Antigen 1.1 NG/ML CA 19-9 Antigen LESS THAN 1.2 U/ML Imaging Last Impressions Abdomen/Pelvis CT 02/22/17 1335 Signed Impressions: Service Date/Time: Wednesday, February 22, 2017 15:39 - CONCLUSION: 1. Ill- defined mass in the pancreatic head/proximal body with resultant pancreatic ductal dilatation and slight tail atrophy. Findings are concerning for pancreatic adenocarcinoma. Pancreatic mass protocol MRI or CT examination may be performed for further evaluation. 2. Normal appendix. 3. No other findings to explain patient's abdominal pain. Venu Mendenhall MD Cholangiopancreatography MRI 02/22/17 0000 Signed Impressions: Service Date/Time: Wednesday, February 22, 2017 18:14 - CONCLUSION: Mass of the pancreatic head measuring approximately 2.0 x 2.2 x 2.8 cm, adenocarcinoma until proven otherwise. Associated obstruction of the pancreatic duct and deviation/dilatation of the common bile duct. No evidence of metastatic disease or focal vascular invasion. Ashish Varma MD Objective Remarks General: NAD, AAOx3 Chest: CTA Cardiac: Regular Abd: +BS, soft ND/NT Ext: No edema. A/P Problem List: (1) Pancreatic mass Status: Acute Plan: - Pt has hx breast ca s/p lumpectomy/chemo/XRT. - Pt presented with 1 week RLQ pain and abx started by clinic for questionable appendicitis and laxatives for constipation. - In the ED CT shows an apparent pancreatic head mass and dilation of pancreatic duct. Denies any known hx of pancreatitis but does use daily wine. - She has as above a strong family hx of malignancy. Father(colon), paternal GM( breast), paternal GF(pancreas) - MRCP (02/22) --> 2 x 2.2 x 2.8cm pancreatic head mass with some dilation of pancreatic duct and distortion of CBD. Concern for adenoca - Appreciate GI consultation - Pt to undergo evaluation with EUS. - Monitor LFTs. - Possible c-scope given RLQ pain - Tumor markers note nml CEA and CA19-9, AFP is elevated at 8.7 - Pain control PRN - Cont laxatives - DVT prophylaxis. (2) HX: breast cancer Status: Resolved (3) Hypothyroid Status: Chronic Assessment and Plan Patient examined. Assessment and plan formulated with Saloni Arellano PA-C. I agree with the above. Saloni Arellano Feb 24, 2017 08:34 Keo Montelongo DO Feb 28, 2017 15:48
[2017-02-24] MEDS: FLUTICASONE PROPIONATE 50 MCG/ACT 16 GM NASAL SPRAY EACH NARE SCH ×2 (08:37→21:00)
[2017-02-24] MEDS: buPROPion HCL 150 MG EXTENDED RELEASE TAB PO SCH (09:00)
[2017-02-24] MEDS: POLYETHYLENE GLYCOL 17 GM PKG PO SCH (09:00)
[2017-02-24] MEDS ORDERED: CALCIUM CARBONATE 500 MG CHEWABLE TAB CHEW PRN (09:00)
[2017-02-24 12:16] VITALS: BP 126/61; PULSE 86; RESP 20; TEMP 96.5; O2SAT 97
[2017-02-24] MEDS ORDERED: MIDAZOLAM HCL 2 MG/2 ML VIAL ONE (15:36)
[2017-02-24] MEDS ORDERED: FAMOTIDINE 20 MG/2 ML VIAL ONE (16:02)
[2017-02-24] MEDS ORDERED: PROPOFOL 200 MG/20 ML AMP IV ONE (16:24)
[2017-02-24] MEDS ORDERED: ONDANSETRON HCL 4 MG/2 ML VIAL IV PUSH ONE (16:24)
--- NOTE | 2017-02-24 17:14 | PD.PROCEDR ---
GI Procedure REFERRING PHYSICIAN Dr. Krueger PROCEDURE PERFORMED EUS with FNA INDICATION FOR PROCEDURE Pancreatic mass PROCEDURE: The procedure, risks and benefits were discussed with Ms. Javier and informed consent was obtained. Anesthesia sedated her with Diprivan. She was placed in the left lateral decubitus position. EUS: The Pentax videoscope was introduced through the oropharynx and advanced to the second portion of the duodenum. FINDINGS: There was a fairly large hypoechoic somewhat hard pancreatic head mass measuring about 5 cm abutting the portal vein and possibly infiltrating the portal vein also causing common bile duct dilation and no lymphadenopathy noted The pancreatic duct was also noted to be dilated FNA was performed on the mass and good samples were obtained ESTIMATED BLOOD LOSS: None SPECIMENS REMOVED: FNA of pancreatic head mass COMPLICATIONS: None IMPRESSION: Pancreatic head mass probable malignancy and possibly infiltrating the portal vein PLAN: Await biopsy Oncology evaluation Supportive care Maurice Odom MD Feb 24, 2017 17:14
[2017-02-24 18:13] VITALS: BP 131/65; PULSE 83; RESP 20; TEMP 97.7; O2SAT 100
[2017-02-24] MEDS: CHOLECALCIFEROL (VIT D3) 1000 UNIT TAB PO SCH (18:15)
[2017-02-24 20:00] VITALS: BP 120/64; PULSE 84; RESP 18; TEMP 98.6; O2SAT 98
[2017-02-24] MEDS ORDERED: DO NOT ADM ANY ANTICOAGULANT DRUGS PRN (20:15)
[2017-02-25] VITALS: BP 122/61; PULSE 87; RESP 18; TEMP 98; O2SAT 97
[2017-02-25 05:50] VITALS: BP 120/64; PULSE 83; RESP 18; TEMP 97.7; O2SAT 96
[2017-02-25] MEDS: LEVOTHYROXINE SODIUM 112 MCG TAB PO SCH (05:57)
[2017-02-25] MEDS: FLUTICASONE PROPIONATE 50 MCG/ACT 16 GM NASAL SPRAY EACH NARE SCH ×2 (06:05→09:20)
[2017-02-25 06:53] LABS: AUTOMATED NEUTROPHIL # 4.7 TH/MM3 (1.8-7.7); BASOPHIL # 0.1 TH/MM3 (0-0.2); BASOPHIL % 1.1 % (0.0-2.0); EOSINOPHIL # 0.1 TH/MM3 (0-0.4); EOSINOPHIL % 1.7 % (0.0-4.0); HEMATOCRIT 34.9 % (35.0-46.0); HEMO FLAGS DIFF FINAL; LYMPH % 33.5 % (9.0-44.0); LYMPHOCYTE # 2.8 TH/MM3 (1.0-4.8); MEAN CELL VOLUME 88.5 FL (80.0-100.0); MEAN CORPUSCULAR HEMOGLOBIN 28.8 PG (27.0-34.0); MEAN CORPUSCULAR HGB CONC 32.5 % (32.0-36.0); MONO % 6.8 % (0.0-8.0); NEUT % 56.9 % (16.0-70.0); PLATELET COUNT 266 TH/MM3 (150-450); RED BLOOD COUNT 3.94 MIL/MM3 (4.00-5.30); RED CELL DISTRIBUTION WIDTH 12.9 % (11.6-17.2); WHITE BLOOD COUNT 8.3 TH/MM3 (4.0-11.0)
[2017-02-25 07:34] LABS: ALKALINE PHOSPHATASE 74 U/L (45-117); ALT (GPT) 28 U/L (10-53); ANION GAP 11 MEQ/L (5-15); AST (GOT) 16 U/L (15-37); BICARBONATE 25.4 MEQ/L (21.0-32.0); BLOOD UREA NITROGEN 7 MG/DL (7-18); CHLORIDE 104 MEQ/L (98-107); GLOMERULAR FILTRATION RATE 100 ML/MIN (>89); POTASSIUM 3.5 MEQ/L (3.5-5.1); SODIUM (NA) 140 MEQ/L (136-145); TOTAL BILIRUBIN ADULT 0.3 MG/DL (0.2-1.0)
--- NOTE | 2017-02-25 08:24 | HHI.PR ---
Subjective Remarks Headache has resolved. She denies any significant abd pain today Pt tolerating clear liquid diet and would like her diet advanced Objective Vitals Vital Signs Date Time Temp Pulse Resp B/P Pulse Ox O2 Delivery O2 Flow Rate FiO2 02/25/17 05:50 97.7 83 18 120/64 96 02/25/17 00:00 98.0 87 18 122/61 97 02/24/17 20:05 Room Air 02/24/17 20:00 98.6 84 18 120/64 98 02/24/17 18:42 Nasal Cannula 2.00 02/24/17 18:13 97.7 83 20 131/65 100 02/24/17 17:45 97.4 83 16 117/59 100 Nasal Cannula 2 02/24/17 17:30 89 16 115/57 99 Nasal Cannula 2 02/24/17 17:19 97.4 92 16 161/65 96 Nasal Cannula 2 02/24/17 12:16 96.5 86 20 126/61 97 02/24/17 08:28 96.4 75 20 115/68 96 02/24/17 02/24/17 02/25/17 15:00 23:00 07:00 Intake Total 840 ml 240 ml Output Total 50 ml Balance 790 ml 240 ml Intake Oral 240 ml 240 ml Other 600 ml Estimated Blood Loss 50 ml # Voids 5 2 2 # Bowel Movements 1 Result Diagram: 02/25/17 0520 02/25/17 05 Other Results Laboratory Tests Test 02/25/17 05:20 White Blood Count 8.3 TH/MM3 Red Blood Count 3.94 MIL/MM3 Hemoglobin 11.3 GM/DL Hematocrit 34.9 % Mean Corpuscular Volume 88.5 FL Mean Corpuscular Hemoglobin 28.8 PG Mean Corpuscular Hemoglobin 32.5 % Concent Red Cell Distribution Width 12.9 % Platelet Count 266 TH/MM3 Mean Platelet Volume 7.9 FL Neutrophils (%) (Auto) 56.9 % Lymphocytes (%) (Auto) 33.5 % Monocytes (%) (Auto) 6.8 % Eosinophils (%) (Auto) 1.7 % Basophils (%) (Auto) 1.1 % Neutrophils # (Auto) 4.7 TH/MM3 Lymphocytes # (Auto) 2.8 TH/MM3 Monocytes # (Auto) 0.6 TH/MM3 Eosinophils # (Auto) 0.1 TH/MM3 Basophils # (Auto) 0.1 TH/MM3 CBC Comment DIFF FINAL Differential Comment Sodium Level 140 MEQ/L Potassium Level 3.5 MEQ/L Chloride Level 104 MEQ/L Carbon Dioxide Level 25.4 MEQ/L Anion Gap 11 MEQ/L Blood Urea Nitrogen 7 MG/DL Creatinine 0.60 MG/DL Estimat Glomerular Filtration 100 ML/MIN Rate Random Glucose 104 MG/DL Calcium Level 9.0 MG/DL Total Bilirubin 0.3 MG/DL Aspartate Amino Transf 16 U/L (AST/SGOT) Alanine Aminotransferase 28 U/L (ALT/SGPT) Alkaline Phosphatase 74 U/L Total Protein 6.3 GM/DL Albumin 3.2 GM/DL Imaging Last Impressions Abdomen/Pelvis CT 02/22/17 1335 Signed Impressions: Service Date/Time: Wednesday, February 22, 2017 15:39 - CONCLUSION: 1. Ill- defined mass in the pancreatic head/proximal body with resultant pancreatic ductal dilatation and slight tail atrophy. Findings are concerning for pancreatic adenocarcinoma. Pancreatic mass protocol MRI or CT examination may be performed for further evaluation. 2. Normal appendix. 3. No other findings to explain patient's abdominal pain. Venu Mendenhall MD Cholangiopancreatography MRI 02/22/17 0000 Signed Impressions: Service Date/Time: Wednesday, February 22, 2017 18:14 - CONCLUSION: Mass of the pancreatic head measuring approximately 2.0 x 2.2 x 2.8 cm, adenocarcinoma until proven otherwise. Associated obstruction of the pancreatic duct and deviation/dilatation of the common bile duct. No evidence of metastatic disease or focal vascular invasion. Ashish Varma MD Objective Remarks General: NAD, AAOx3 Chest: CTA Cardiac: Regular Abd: +BS, soft ND/NT Ext: No edema. A/P Problem List: (1) Pancreatic mass Status: Acute Plan: - Pt has hx breast ca s/p lumpectomy/chemo/XRT. - Pt presented with 1 week RLQ pain and abx started by clinic for questionable appendicitis and laxatives for constipation. - In the ED CT shows an apparent pancreatic head mass and dilation of pancreatic duct. Denies any known hx of pancreatitis but does use daily wine. - She has as above a strong family hx of malignancy. Father(colon), paternal GM( breast), paternal GF(pancreas) - MRCP (02/22) --> 2 x 2.2 x 2.8cm pancreatic head mass with some dilation of pancreatic duct and distortion of CBD. Concern for adenoca - Appreciate GI consultation - Pt underwent evaluation with EUS (02/24/17)--> Pancreatic head mass probable malignancy and possibly infiltrating the portal vein - Pathology is pending. - Oncology has been consulted. Pt had previously been under the case of Dr. Castellon for her breast cancer. - Monitor LFTs. - Tumor markers note nml CEA and CA19-9, AFP is elevated at 8.7 - Pt tolerating clear liquid diet - Pain control PRN - Cont laxatives - DVT prophylaxis. (2) HX: breast cancer Status: Resolved (3) Hypothyroid Status: Chronic Assessment and Plan Patient examined. Assessment and plan formulated with Saloni Arellano PA-C. I agree with the above. Saloni Arellano Feb 25, 2017 08:24 Keo Montelongo DO Feb 28, 2017 15:48
[2017-02-25 08:57] VITALS: BP 116/60; PULSE 74; RESP 20; TEMP 97.4; O2SAT 97
[2017-02-25] MEDS: buPROPion HCL 150 MG EXTENDED RELEASE TAB PO SCH (09:00)
[2017-02-25] MEDS: POLYETHYLENE GLYCOL 17 GM PKG PO SCH (09:20)
[2017-02-25] MEDS: CHOLECALCIFEROL (VIT D3) 1000 UNIT TAB PO SCH (09:20)
--- NOTE | 2017-02-25 11:36 | HHI.GIFU ---
Subjective Remarks Pt resting in bed, visiting with . She is tolerating clears, no vomiting , nausea, pain. She is asking to have diet advanced and is ready to go home. Objective Vitals I&O Vital Signs Date Time Temp Pulse Resp B/P Pulse Ox O2 Delivery O2 Flow Rate FiO2 02/25/17 09:19 Room Air 02/25/17 08:57 97.4 74 20 116/60 97 02/25/17 05:50 97.7 83 18 120/64 96 02/25/17 00:00 98.0 87 18 122/61 97 02/24/17 20:05 Room Air 02/24/17 20:00 98.6 84 18 120/64 98 02/24/17 18:42 Nasal Cannula 2.00 02/24/17 18:13 97.7 83 20 131/65 100 02/24/17 17:45 97.4 83 16 117/59 100 Nasal Cannula 2 02/24/17 17:30 89 16 115/57 99 Nasal Cannula 2 02/24/17 17:19 97.4 92 16 161/65 96 Nasal Cannula 2 02/24/17 12:16 96.5 86 20 126/61 97 I/O 02/24/17 02/24/17 02/24/17 02/25/17 02/25/17 02/25/17 07:00 15:00 23:00 07:00 15:00 23:00 Intake Total 840 ml 240 ml Output Total 50 ml Balance 790 ml 240 ml Intake Oral 240 ml 240 ml Other 600 ml Estimated Blood Loss 50 ml # Voids 2 5 2 2 # Bowel Movements 1 Laboratory Laboratory Tests Test 02/25/17 05:20 White Blood Count 8.3 Red Blood Count 3.94 Hemoglobin 11.3 Hematocrit 34.9 Mean Corpuscular Volume 88.5 Mean Corpuscular Hemoglobin 28.8 Mean Corpuscular Hemoglobin 32.5 Concent Red Cell Distribution Width 12.9 Platelet Count 266 Mean Platelet Volume 7.9 Neutrophils (%) (Auto) 56.9 Lymphocytes (%) (Auto) 33.5 Monocytes (%) (Auto) 6.8 Eosinophils (%) (Auto) 1.7 Basophils (%) (Auto) 1.1 Neutrophils # (Auto) 4.7 Lymphocytes # (Auto) 2.8 Monocytes # (Auto) 0.6 Eosinophils # (Auto) 0.1 Basophils # (Auto) 0.1 CBC Comment DIFF FINAL Differential Comment Sodium Level 140 Potassium Level 3.5 Chloride Level 104 Carbon Dioxide Level 25.4 Anion Gap 11 Blood Urea Nitrogen 7 Creatinine 0.60 Estimat Glomerular Filtration 100 Rate Random Glucose 104 Calcium Level 9.0 Total Bilirubin 0.3 Aspartate Amino Transf 16 (AST/SGOT) Alanine Aminotransferase 28 (ALT/SGPT) Alkaline Phosphatase 74 Total Protein 6.3 Albumin 3.2 Imaging Last Impressions Abdomen/Pelvis CT 02/22/17 1335 Signed Impressions: Service Date/Time: Wednesday, February 22, 2017 15:39 - CONCLUSION: 1. Ill- defined mass in the pancreatic head/proximal body with resultant pancreatic ductal dilatation and slight tail atrophy. Findings are concerning for pancreatic adenocarcinoma. Pancreatic mass protocol MRI or CT examination may be performed for further evaluation. 2. Normal appendix. 3. No other findings to explain patient's abdominal pain. Venu Mendenhall MD Cholangiopancreatography MRI 02/22/17 0000 Signed Impressions: Service Date/Time: Wednesday, February 22, 2017 18:14 - CONCLUSION: Mass of the pancreatic head measuring approximately 2.0 x 2.2 x 2.8 cm, adenocarcinoma until proven otherwise. Associated obstruction of the pancreatic duct and deviation/dilatation of the common bile duct. No evidence of metastatic disease or focal vascular invasion. Ashish Varma MD Physical Exam HEENT:PERRL; normocephalic; atraumatic; no jaundice. CHEST: CTA CARDIAC: RRR ABDOMEN: Soft, nondistended, nontender; no hepatosplenomegaly; bowel sounds are present in all four quadrants. EXTREMITIES: No clubbing, cyanosis, or edema. SKIN: Normal; no rash; no jaundice. 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 Assessment and Plan Plan ASSESSMENT -pancreatic mass - no LFT derangement, pt denies n/v, epigastric pain, jaundice. AFP 8.7, CEA 1.1, CA 19-9 <1.2. EUS 02/24/17 --> pancreatic head mass probably malignancy, possible infiltration portal vein. CT --> 02/22/17 pancreatic mass w/ distention pancreatic duct. MRCP 02/22/17--> mass pancreatic head 2x2.2x2.8 cm, adenocarcinoma until proven otherwise, associated obstruction pancreatic duct and deviation, dilatation common bile duct, no evidence metastatic disease or focal vascular invasion. fam hx pancreatic ca. Oncology consult pending. - RLQ pain - IMPROVED. ?adhesions hx MICHAEL, told at that time she had adhesions. worse with certain movements. CT as above. Colonoscopy 4y ago and normal per pt. Consider repeat colonoscopy as outpatient, If pain persists or worsens consider GS consult. fam hx colon ca. PLAN - await pathology FNA - await oncology consult - low fat diet - f/u with GI as outpatient in 1 week - okay to d/c from GI standpoint if pt is tolerating diet and has had oncology consult, d/w Dr Odom This pt seen by myself and DR Salamanca and this note is written on his behalf Perlita Haddad Feb 25, 2017 11:36
[2017-02-25 12:09] VITALS: BP 122/58; PULSE 79; RESP 20; TEMP 97.2; O2SAT 97
[2017-02-25 16:05] VITALS: BP 121/59; PULSE 76; RESP 20; TEMP 97.3; O2SAT 99
--- NOTE | 2017-02-25 16:15 | HHI.DCPOC ---
Discharge Care Plan Diagnosis: (1) Pancreatic mass (2) Abdominal pain (3) HX: breast cancer (4) Hypothyroid Goals to Promote Your Health - Pt is to followup with Dr. Castellon within 1 week, call for an appt. - Pt is to followup with GI, Dr. Odom in 1-2 weeks - Followup with your PCP, Dr. Solis, in 1 week, call for an appt. Directions to Meet Your Goals Take your medications as prescribed Follow your dietary instruction Follow activity as directed Keep your appointments as scheduled Take your immunizations and boosters as scheduled If your symptoms worsen call your PCP, if no PCP go to Urgent Care Center or Emergency Room Smoking is Dangerous to Your Health. Avoid second hand smoke Call the 24-hour hour crisis hotline for domestic abuse at Saloni Arellano Feb 25, 2017 16:15 Keo Montelongo DO Feb 28, 2017 15:49
[2017-02-25] MEDS ORDERED: HYDR-3516 PO (16:16)
--- NOTE | 2017-02-25 17:09 | EKG ---
Date Performed: 02/24/2017 Time Performed: 14:01:23 PTAGE: 66 years EKG: Sinus rhythm NORMAL ECG NO PREVIOUS TRACING DOCTOR: Alyssa Soriano Interpretating Date/Time 02/25/2017 17:06:40
--- NOTE | 2017-02-25 22:18 | MB ---
cc: MIKO MCGOVERN SAUD E. M.D. MCCOLLUM, ALFONZA MD DATE OF CONSULTATION 02/25/2017 REASON FOR CONSULTATION Probable cancer of the pancreas. PATIENT PROFILE The patient is a 66-year-old white female. She is . She has two children, one adopted and one biologic. She was born in [place] and has lived in [place] since 1971. 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 She stopped smoking in 1980 and had previously smoked less than a pack of cigarettes per week for a period of 10 years. Alcohol intake is minimal. HISTORY OF PRESENT ILLNESS The patient is a 66-year-old female who had a right lumpectomy and axillary lymph node dissection on 06/17/2003 for a moderately differentiated invasive ductal cancer. Pathologic stage T1c N0 M0. ER positive. She received four cycles of Cytoxan, Adriamycin and then 5 years of Arimidex. She received postoperative radiation. She has had no evidence of recurrent breast cancer. She was well until about 8 or 9 days ago when she developed pain in the right lower quadrant of the abdomen. She took medications for constipation which transiently helped. The pain worsened significantly and became unbearable. She went to the emergency room on 02/22/2017 for severe right lower quadrant pain not responsive to outpatient management. On 02/22/[address] scan of the abdomen and pelvis with IV contrast. This showed an ill-defined mass in the pancreatic head proximal body with resultant pancreatic ductal dilation and slight tail atrophy. Findings were of concern for pancreatic adenocarcinoma. The appendix appeared normal. There was nothing else on the exam to explain the patient's right lower quadrant abdominal pain. On the same day the patient underwent an MRI, MRCP with and without contrast to evaluate the pancreas. The findings were "mass at the pancreatic head measuring 2.0 x 2.2 x 2.8 cm, adenocarcinoma until proven otherwise. Associated obstruction of the pancreatic duct and deviation dilation of the common bile duct. No evidence of metastatic disease or focal vascular invasion. On 02/24/2017 the patient underwent EUS was with FNA. There was a hard pancreatic head mass which was felt to measure 5 cm abutting the portal vein and possibly infiltrating the portal vein causing common bile duct dilation. No lymphadenopathy noted. I contacted Dr. Odom who performed the procedure and asked him whether there was convincing evidence of vascular invasion and at this point there is no convincing evidence. It simply abuts the vascular structure and one cannot determine whether there is or is not invasion. The patient was treated with laxatives for her abdominal pain. The pain has resolved. There has been no history of weight loss, upper abdominal pain or back pain which often accompanies pancreatic cancer. Studies include on 02/22/2017 normal lytes, BUN, creatinine, glucose. An alpha-fetoprotein is 8.7. CEA is 1.1 and a CA19-9 is less than 1.2. Hemoglobin on 02/22/2017 12.6, white count 9000, platelets 319,000. ASSESSMENT A 66-year-old female who presented with right lower quadrant abdominal pain and is found to have a mass in the pancreas. The right lower abdominal pain I do not believe is related to the current findings which are highly suggestive of pancreatic cancer. For the present time it appears that she may be a candidate for surgery. There is no evidence of metastatic disease and there is no documented vascular invasion. PLAN 1. The films and findings were reviewed with the patient. I showed her the images and explained that the most successful treatment for pancreatic cancer is surgical removal of the disease when it has not spread and it can be fully excised. 2. Await the results of the biopsy. 3. If this is adenocarcinoma of the pancreas, I would like her to be seen by a surgeon who does a significant volume of pancreatic cancer surgery and if possible does robotic surgery which would allow her to avoid an open procedure resulting in a better recovery. At the moment, we do not have a firm diagnosis. The fact that the CA19-9 is low and there is no evidence of metastatic disease or vascular invasion indicates that she may be a candidate for surgery. She will contact our office early next week and decisions will be forthcoming. Also of note, she has not had any imaging of the chest and therefore I will at some point make arrangements for least a chest x-ray. MD ANDREW Manuel/ALONZO /7:27 PM /9:55 PM GENNARO
--- NOTE | 2017-02-26 08:43 | HHI.DS ---
Discharge Summary Admission Date Feb 22, 2017 at 17:10 Admitting Diagnosis abdominal pain/pancreatic mass (1) Pancreatic mass (2) HX: breast cancer (3) Hypothyroid Consultants Dr. Maurice Odom - GI Dr. Álvaro Castellon - Oncology Brief History Pt is 66 yo with hx of breast ca s/p lumpectomy, chemoradiation. She presents with rlq pain over past week. Was seen in urgent care and pcp. she was prescribed levaquin and flagyl for possible appendicitis but it was unclear. Also she was given laxatives for possible constipation. No f/c or n/v. Pt seen here today and CT a/p shows apparent pancreas mass with distention of pancreatic duct. admission requested. Pt has maternal grandfather had pancreas ca and paternal grandmother with breast ca. Her father had colon ca at 57. She gets regular colonoscopy and says had one about 4 yrs ago. CBC/BMP: 02/25/17 0520 02/25/17 0520 Significant Findings Laboratory Tests Test 02/25/17 05:20 Red Blood Count 3.94 MIL/MM3 (4.00-5.30) Hemoglobin 11.3 GM/DL (11.6-15.3) Hematocrit 34.9 % (35.0-46.0) Total Protein 6.3 GM/DL (6.4-8.2) Albumin 3.2 GM/DL (3.4-5.0) Imaging Last Impressions Abdomen/Pelvis CT 02/22/17 1335 Signed Impressions: Service Date/Time: Wednesday, February 22, 2017 15:39 - CONCLUSION: 1. Ill- defined mass in the pancreatic head/proximal body with resultant pancreatic ductal dilatation and slight tail atrophy. Findings are concerning for pancreatic adenocarcinoma. Pancreatic mass protocol MRI or CT examination may be performed for further evaluation. 2. Normal appendix. 3. No other findings to explain patient's abdominal pain. Venu Mendenhall MD Cholangiopancreatography MRI 02/22/17 0000 Signed Impressions: Service Date/Time: Wednesday, February 22, 2017 18:14 - CONCLUSION: Mass of the pancreatic head measuring approximately 2.0 x 2.2 x 2.8 cm, adenocarcinoma until proven otherwise. Associated obstruction of the pancreatic duct and deviation/dilatation of the common bile duct. No evidence of metastatic disease or focal vascular invasion. Ashish Varma MD PE at Discharge General: NAD, AAOx3 Chest: CTA Cardiac: Regular Abd: +BS, soft ND/NT Ext: No edema. Hospital Course Pt has hx breast ca s/p lumpectomy/chemo/XRT. Pt presented with 1 week RLQ pain and abx started by clinic for questionable appendicitis and was given antibiotics and laxatives for constipation. In the ED CT shows an apparent pancreatic head mass and dilation of pancreatic duct. Denies any known hx of pancreatitis but does use daily wine. She has a strong family hx of malignancy. Father(colon), paternal GM(breast), paternal GF(pancreas). MRCP (02/22) --> 2 x 2.2 x 2.8cm pancreatic head mass with some dilation of pancreatic duct and distortion of CBD. Concern for adenocarcinoma. GI was consulted. Pt underwent evaluation with EUS (02/24/17)--> fairly large hypoechoic somewhat hard pancreatic head mass measuring about 5 cm abutting the portal vein and possibly infiltrating the portal vein also causing common bile duct dilation and no lymphadenopathy noted, pancreatic duct was also noted to be dilated. FNA was performed on the mass and good samples were obtained. Pathology is pending. Oncology was consulted. Pt had previously been under the case of Dr. Castellon for her breast cancer. Dr. Castellon saw the pt prior to discharge. He is awaiting the pathology results and may have imaging of the chest performed as an outpt. Tumor markers note nml CEA and CA19-9, AFP is elevated at 8.7. Dr. Castellon may consider sending the pt to a tertiary center for surgical intervention if there is no evidence of any metastatic spread. Pt was tolerating regular diet prior to discharge. Her pain was controlled. Pt will followup with Dr. Castellon in 1 week. She will followup with Dr. Odom in 2-3 weeks. Pt will followup with her PCP, Dr. Solis in 1 week. Pt Condition on Discharge: Stable Discharge Disposition: Discharge Home Discharge Instructions DIET: Follow Instructions for: Low Fat Diet Activities you can perform: Regular-No Restrictions Follow up Referrals: Gastroenterology - 2 Weeks @ [facility] - [address] Castellon PCP Follow-up - [address] Solis New Medications: Hydrocodone-Acetaminophen (Hydrocodone-Acetaminophen) 5-325 mg Tab 1 TAB PO Q4H PRN pain over 3 #15 Ref 0 TAB Continued Medications: Albuterol 18 GM Inh (Ventolin Hfa 18 GM Inh) 90 Mcg/Act Aer 2 PUFF INH Q4-6H PRN SHORTNESS OF BREATH #1 Ref 0 INHALER Aspirin (Aspirin) 81 Mg Chew 81 MG CHEW DAILY Ref 0 TAB Atorvastatin (Atorvastatin) 10 Mg Tab 10 MG PO HS Cholesterol Management #30 Ref 0 TAB Bupropion HCl ER 24 HR (Bupropion HCl ER 24 HR) 150 Mg Tab 150 MG PO DAILY Control Depression Ref 0 TAB Cholecalciferol (Vitamin D) 1,000 Unit Tab 1000 UNITS PO DAILY Nutritional Supplement #1 Ref 0 BOTTLE Estradiol Vaginal (Estrace Vaginal) 0.01% Cream 1 APPL VAGINAL HS Estrogen Supplements #1 Ref 0 TUBE Fluticasone Nasal [place] (Fluticasone Nasal [place]) 50 Mcg/Act Naspr 50 MCG EACH NARE BID 50 mcg/spray Allergy Management #1 Ref 0 BOTTLE Levothyroxine (Synthroid) 112 Mcg Tab 112 MCG PO DAILY Thyroid #30 Ref 0 TAB Montelukast Sodium (Bulk) (Montelukast Sodium) 1 Pow Pow Omeprazole (Omeprazole) 20 Mg Tab 20 MG PO DAILY #30 Ref 0 TAB Polyethylene Glycol 3350 Powder (Polyethylene Glycol 3350 Powder) 17 Gm Pow 17 GM PO DAILY Constipation #1 Ref 0 BOTTLE Ranitidine HCl (Gnp Acid Control 150 Maxi) 150 Mg Tab Discontinued Medications: Levofloxacin (Levofloxacin) 500 Mg Tablet 500 MG PO DAILY Infection Ref 0 TAB Metronidazole (Metronidazole) 500 Mg Tab 500 MG PO TID Infection Ref 0 TAB Additional Information Patient examined. Assessment and plan formulated with Saloni Arellano PA-C. I agree with the above. Saloni Arellano Feb 26, 2017 08:43 Keo Montelongo DO Feb 28, 2017 15:48
== END 2017-02-25 21:12 | disposition home or self-care (01) | DRG 440 ==
LOC: NEPC 13:08 → NEDA 16:28 → OBSVTOIN 17:10 → HOCA 19:18
PROVIDERS: ADMIT Hospitalist; ATTEND Hospitalist
PROC: 0FBG4ZX Excision of Pancreas, Percutaneous Endoscopic Approach, Diagnostic (ICD-10-PCS; principal; 2017-02-24 16:15)
DX: K86.9 Disease of pancreas, unspecified (principal); F32.9 Major depressive disorder, single episode, unspecified; E03.9 Hypothyroidism, unspecified; K21.9 Gastro-esophageal reflux disease without esophagitis; E78.5 Hyperlipidemia, unspecified; K59.00 Constipation, unspecified; Z85.3 Personal history of malignant neoplasm of breast
CPT/HCPCS: 43242; 74177; 74183; 76377; 76937; 80053; 81001; 82105; 82378; 83690; 85025; 86301; 93005; 96361; 96374; 96375; A9579; J2250; J2270; J2405; J3010; J7030; Q9967

== ENCOUNTER → 2017-04-09 | Day surgery (SDC) | payer MEDICARE ==
[~2017-04-09] VITALS: Ht 152.4 cm; Wt 69.5 kg
[~2017-04-09] MED LIST: ACETAMINOPHEN 1000 MG/100 ML VIAL IV ONE; ACETAMINOPHEN 1000 MG/100 ML VIAL IV SCH; ALPR0.25 PO; ASPI81CH CHEW; ATOR10TA15 PO; BUPR150T3 PO; CHLORHEXIDINE GLUCONATE 2 % 1 PACK (2 CLOTHS) TOPICAL PRN; DO NOT ADM ANY ANTICOAGULANT DRUGS PRN; ESTR42.5V VAGINAL; FLUT50SP EACH NARE; HEPARIN SODIUM - IV 10,000 UNITS/10 ML VIAL ONE; HYDR-3516 PO; INSULIN HUMAN REGULAR 1,000 UNITS/10 ML VIAL SQ PRN; KETOROLAC TROMETHAMINE 30 MG/ML (IVP) VIAL IV PUSH ONE; LACTATED RINGER'S 1000 ML IV PRN; LIDOCAINE 1%/EPINEPHrine 1:100,000 SOLN 20 ML VIAL ONE; LIDOCAINE 1%/EPINEPHrine 1:100,000 SOLN 30 ML VIAL INFIL ONE; MEPERIDINE HCL 50 MG/ML VIAL ONE; METOPROLOL TARTRATE 25 MG TAB PO PRN; MORPHINE SULFATE 4 MG/ML INJ IV PRN; OMEP20TA PO; ONDANSETRON HCL 4 MG/2 ML VIAL IV PRN; ONDANSETRON HCL 4 MG/2 ML VIAL ONE; POLY17S PO; POVIDONE IODINE 5% (ANTISEPSIS KIT) 4 APPLICATIONS EACH NARE PRN; PROPOFOL 200 MG/20 ML AMP IV ONE; SODIUM BICARBONATE 8.4% INJ 50 ML ONE; SODIUM CHLORID 0.9% 500 ML IV PRN; SODIUM CHLORIDE 0.9% 20 ML VIAL ONE; SODIUM CHLORIDE 0.9% FLUSH 10 ML FLUSH IV FLUSH PRN; SODIUM CHLORIDE 0.9% FLUSH 10 ML FLUSH IV FLUSH SCH; SYNT112T PO; VENTAER INH; VITA100064 PO; ceFAZolin 2 GM PREMIX 50 ML IV SCH; ceFAZolin 2 GM PREMIX 50 ML ONE; oxyCODONE/ACETAMINOPHEN 5 MG/325 MG TAB PO PRN
[2017-04-09 12:51] VITALS: BP 143/78; PULSE 69; RESP 20; TEMP 97.8; O2SAT 100
--- NOTE | 2017-04-09 15:58 | PD.OP ---
cc: Isreal Garay MD; Álvaro Castellon MD Operative Report Date of Surgery: Apr 09, 2017 Preoperative Diagnosis: Carcinoma of the pancreas Postoperative Diagnosis: Carcinoma of the pancreas Procedure: Placement of left subclavian [id number] Anesthesia: Local/MAC Surgeon: Isreal Garay Window Glazier Helper(s): None Operation and Findings: Operative procedure: The patient was brought to the operating room and after satisfactory sedation by anesthesia the left chest was prepped and draped in the usual sterile fashion. 1% lidocaine with epinephrine was used to infiltrate the skin for local anesthesia. Or needle was used to cannulate the left subclavian vein after which a guidewire was inserted into the superior vena cava, with placement being confirmed on fluoroscopy. A skin incision was then made medial to the guidewire and a subcutaneous pocket was fashioned for the port. The port was placed within the pocket and the catheter was cut to the appropriate length. Dilator and introducer then placed over the guidewire and the catheter inserted into the superior vena cava through the breakaway introducer without problem. The port was then affixed to the pectoralis fashion with a 3-0 Vicryl suture. A permanent x-ray was taken initial placement of the port in the proper location. The port was then aspirated easily and flushed with heparinized saline after which the subcutaneous tissue and skin were closed with interrupted 4-0 PDS subcutaneous stitches. Steri- Strips and sterile dressings were placed. The patient was then awakened and taken from the operating room, in satisfactory condition, having tolerated the procedure without problem. Estimated blood loss was less than 10 mL's. The instrument, sponge, needle counts were reported as being correct 2 at the end of the procedure. Isreal Garay MD Apr 09, 2017 15:58
[2017-04-09 16:50] VITALS: BP 130/61; PULSE 80; RESP 16; TEMP 97.5; O2SAT 97
--- NOTE | 2017-04-09 16:57 | RADRPT ---
EXAM DATE/TIME: 04/09/2017 15:16 [facility] COMPARISON: No previous studies available for comparison. INDICATIONS : Left sided infusaport placement. FLUORO TIME: 6 SECS IMAGE COUNT: 1 MEDICAL HISTORY : None. SURGICAL HISTORY : None. ENCOUNTER: Initial ACUITY: 1 day PAIN SCORE: Non-responsive. LOCATION: Left chest FINDINGS: Tip of the [id number] is not visualized. There is no pneumothorax. CONCLUSION: Negative for pneumothorax. William Patterson MD FACR on April 09, 2017 at 16:55 Board Certified Radiologist. This report was verified electronically.
== END | disposition home or self-care (01) ==
LOC: HSDC 11:53
PROVIDERS: ATTEND Surgery
DX: C25.9 Malignant neoplasm of pancreas, unspecified (principal)
CPT/HCPCS: 00532; 36561; C1788; J1644; J2175; J2405; J3010; J7120; J0131; J0690